=== PATIENT | female | born 1935 | race Asian ===

== ENCOUNTER 2019-03-07 21:10 | Emergency (ER) | payer BC, MEDICAID ==
[~2019-03-07] VITALS: Ht 160 cm; Wt 48.1 kg
--- NOTE | 2019-03-07 21:42 | NUR ---
PT BROUGHT TO ROOM. PER FAMILY TOOK SMALL WHITE PILL TONIGHT BUT DOES NOT KNOW MEDICATION NAME. PER [employer]Porch PILL IS AMLODIPINE 2.5MG. PTS BP 172/71
[2019-03-07 22:58] LABS: ALANINE AMINOTRANSFERASE 31 U/L (12-78); ANION GAP 9 mmol/L (5-15); CALCIUM 9.3 mg/dL (8.5-10.1); CHLORIDE 105 mmol/L (98-107); CREATININE 0.73 mg/dL (0.55-1.02)
[2019-03-07 23:02] LABS: ALKALINE PHOSPHATASE 24 U/L (45-117); BILIRUBIN,TOTAL 0.3 mg/dL (0.2-1.0); TOTAL PROTEIN 7.7 g/dL (6.4-8.2); TROPONIN I < 0.015 ng/mL (0.000-0.045)
--- NOTE | 2019-03-07 23:11 | NUR ---
PT TAKEN TO IMAGING. FAMILY REFUSING LABS ON PT. MD NOTIFIED. VERBALIZES UNDERSTANDING.
[2019-03-07] MEDS ORDERED: DIPHENHYDRAMINE 50 MG/ML, 1ML ONE (23:24)
[2019-03-07] MEDS ORDERED: DIPHENHYDRAMINE 50 MG/ML, 1ML IVPush ONE (23:30)
--- NOTE | 2019-03-07 23:31 | NUR ---
PT MEDICATED PER EMAR IN CT.
--- NOTE | 2019-03-08 00:02 | NUR ---
PTS IV NO LONGER PATENT IN CT. SPOKE WITH FAMILY ABOUT ATTEMPTING ANOTHER IV. FAMILY IS REFUSING ANYMORE PUNCTURES. DR GOSS NOTIFIED. PT BROUGHT BACK TO ROOM AND DR. GOSS AT BEDSIDE.
--- NOTE | 2019-03-08 00:23 | NUR ---
PT TAKEN TO IMAGING.
--- NOTE | 2019-03-08 00:25 | NUR ---
PT BACK FROM IMAGING. FAMILY AT BEDSIDE.
--- NOTE | 2019-03-08 01:12 | NUR ---
Patient/Caregiver given discharge instructions and they have confirmed that they understand the instructions. Patient ambulatory with steady gait.
[2019-03-08 01:13] VITALS: BP 140/60
== END 2019-03-08 01:15 | disposition home or self-care (01) ==
LOC: ED 03-08 01:09
DX: R51 Headache (principal); I10 Essential (primary) hypertension; R42 Dizziness and giddiness; E11.9 Type 2 diabetes mellitus without complications
CPT/HCPCS: 36415; 70450; 80053; 84484; 93005; 96374; 99284; J1200